=== PATIENT | male | born 1970 | race Two or more races ===

== ENCOUNTER 2017-03-14 00:08 | Emergency (ER) | payer SELFPAY ==
[~2017-03-14] VITALS: Ht 167.6 cm; Wt 63.6 kg
[2017-03-14 00:13] VITALS: BP 125/83
[2017-03-14] MEDS ORDERED: ALBU8.5H8 IH (00:28)
[2017-03-14] MEDS ORDERED: DOXY100C43 PO (00:28)
[2017-03-14] MEDS ORDERED: ipratropium/albuterol 3ml nebule NEB ONE (00:30)
== END 2017-03-14 01:24 | disposition home or self-care (01) ==
LOC: ER 00:13
DX: T69.022A Immersion foot, left foot, initial encounter (principal); T69.021A Immersion foot, right foot, initial encounter; J40 Bronchitis, not specified as acute or chronic; Z59.0 Homelessness
CPT/HCPCS: 94640; 94760; 99283

== ENCOUNTER 2017-03-16 17:01 | Emergency (ER) | payer OTHER ==
[~2017-03-16] VITALS: Ht 182781.3 cm; Wt 67.0 kg
[~2017-03-16 17:01] MED LIST: ALBU8.5H8 IH; DOXY100C43 PO
[2017-03-16 19:45] LABS: CLARITY,URINE CLEAR (Clear); GLUCOSE, URINE NEGATIVE (Neg); KETONES,URINE TRACE mg/dl (Neg); LEUKOCYTE ESTERASE ,URINE NEGATIVE (Neg); NITRITES, URINE NEGATIVE (Neg); OCCULT BLOOD,URINE NEGATIVE (Neg); PROTEIN,URINE TRACE mg/dl (Neg)
[2017-03-16 19:48] LABS: UA COLLECTION TYPE CLN CATCH MIDSTREAM
[2017-03-16 19:50] LABS: COLOR,URINE DARK YELLOW (Yellow)
[2017-03-16 19:55] LABS: WBC,URINE 0-4 /HPF (0-4)
[2017-03-16 19:56] LABS: BACTERIA,URINE NONE SEEN /HPF (Neg); MUCUS STRANDS MANY /LPF (Neg); RBC,URINE 0-2 /HPF (0-2); SQUAMOUS EPITHELIAL CELL,UR NONE SEEN /LPF (FEW)
[2017-03-16] MEDS ORDERED: fluconazole 100mg tablet PO ONE (20:00)
[2017-03-16 20:01] LABS: URINE AMPHETAMINE SCREEN NEGATIVE (Neg); URINE BARBITUATE SCREEN NEGATIVE (Neg); URINE BENZODIAZEPINES SCREEN NEGATIVE (Neg); URINE CANNABINOID SCREEN POSITIVE (Neg); URINE COCAINE SCREEN NEGATIVE (Neg); URINE METHADONE SCREEN NEGATIVE (Neg); URINE OPIATE SCREEN NEGATIVE (Neg); URINE PHENCYCLIDINE SCREEN NEGATIVE (Neg)
[2017-03-16 20:05] LABS: BASOPHILS % (AUTO) 0.3 % (0-1); EOSINOPHILS # (AUTO) 0.1 X10'3 (0-0.9); EOSINOPHILS % (AUTO) 1.6 % (0-6); HEMATOCRIT 47.6 % (42.0-52.0); LYMPHOCYTES # (AUTO) 1.9 X10'3 (1.1-4.8); LYMPHOCYTES % (AUTO) 31.2 % (21-51); MEAN CORPUSCULAR HEMOGLOBIN 30.8 PG (27.0-31.0); MEAN CORPUSCULAR HGB CONC 33.5 % (33.0-36.5); MEAN CORPUSCULAR VOLUME 91.8 FL (78-98); MEAN PLATELET VOLUME 7.5 FL (7.4-10.4); MONOCYTES # (AUTO) 0.6 X10'3 (0-0.9); MONOCYTES % (AUTO) 10.2 % (2-12); NEUTROPHILS # (AUTO) 3.4 X10'3 (1.8-7.7); NEUTROPHILS % (AUTO) 56.7 % (42-75); PLATELET COUNT 248 X10'3 (140-440); RED BLOOD COUNT 5.19 X10'6 (4.70-6.10); RED CELL DISTRIBUTION WIDTH 13.6 % (11.5-14.5)
[2017-03-16 20:33] LABS: ACETAMINOPHEN < 2.0 UG/ML (10-30); ALANINE AMINOTRANSFERASE 72 U/L (12-78); ALBUMIN 3.5 G/DL (3.4-5.0); ALBUMIN/GLOBULIN RATIO 0.8 (1.1-1.5); ALKALINE PHOSPHATASE 110 IU/L (46-116); ANION GAP 8 (8-16); ASPARTATE AMINO TRANSFERASE 48 U/L (10-37); BILIRUBIN,TOTAL 0.5 MG/DL (0.1-1.0); BLOOD UREA NITROGEN 19 MG/DL (7-18); BUN/CREATININE RATIO 22.1 (5.4-32.0); CALCIUM 8.8 MG/DL (8.5-10.1); CHLORIDE 102 MMOL/L (99-107); CREATININE 0.86 MG/DL (0.60-1.10); ETHANOL < 0.010 GM/DL (0.0-0.010); GLUCOSE 86 MG/DL (70-104); POTASSIUM 3.9 MMOL/L (3.5-5.1); SODIUM 138 MMOL/L (135-145); TOTAL CARBON DIOXIDE 27.6 MMOL/L (24-32); TOTAL PROTEIN 7.8 G/DL (6.4-8.2); eGFR > 90 ML/MIN
[2017-03-17] MEDS ORDERED: DOXY100C43 PO ×2 (00:59→03:18)
[2017-03-17] MEDS ORDERED: ALB0.5UD IH (00:59)
[2017-03-17] MEDS ORDERED: ALBU8HFA PO (03:18)
[2017-03-17] MEDS ORDERED: albuterol 2.5 MG/3 ML nebule NEB PRN (04:20)
[2017-03-17] MEDS ORDERED: mirtazapine 15mg tablet PO SCH (21:00)
[2017-03-17] MEDS: LORazepam 1 MG tablet PO PRN (23:13)
[2017-03-18] MEDS ORDERED: risperiDONE 0.5mg tablet PO ONE (08:00)
[2017-03-18] MEDS ORDERED: risperiDONE 2mg tablet PO ONE (08:00)
[2017-03-18] MEDS: LORazepam 1 MG tablet PO PRN (08:28)
[2017-03-18 13:24] VITALS: BP 124/80
== END 2017-03-18 13:39 ==
LOC: ER 17:01
DX: R45.851 Suicidal ideations (principal); M79.671 Pain in right foot; M79.672 Pain in left foot; F17.200 Nicotine dependence, unspecified, uncomplicated; F12.10 Cannabis abuse, uncomplicated; F15.10 Other stimulant abuse, uncomplicated; Z59.0 Homelessness
CPT/HCPCS: 36415; 80053; 80305; 80320; 80329; 81001; 84443; 85025; 99285

== ENCOUNTER 2017-03-30 23:46 | Emergency (ER) | payer MEDICAID, OTHER ==
[~2017-03-30] VITALS: Ht 182781.3 cm; Wt 65.9 kg
[~2017-03-30 23:46] MED LIST changes: -ALBU8.5H8 IH; +ALBU8HFA PO
[2017-03-31] MEDS ORDERED: BENZ1TAB7 PO (00:11)
[2017-03-31] MEDS ORDERED: LURA80TA3 PO (00:11)
[2017-03-31] MEDS ORDERED: QUET-1 (00:11)
[2017-03-31 01:56] LABS: URINE AMPHETAMINE SCREEN NEGATIVE (Neg); URINE BARBITUATE SCREEN NEGATIVE (Neg); URINE BENZODIAZEPINES SCREEN NEGATIVE (Neg); URINE CANNABINOID SCREEN POSITIVE (Neg); URINE COCAINE SCREEN NEGATIVE (Neg); URINE METHADONE SCREEN NEGATIVE (Neg); URINE OPIATE SCREEN NEGATIVE (Neg); URINE PHENCYCLIDINE SCREEN NEGATIVE (Neg)
[2017-03-31 02:01] LABS: ALANINE AMINOTRANSFERASE 94 U/L (12-78); ALBUMIN/GLOBULIN RATIO 0.8 (1.1-1.5); ALKALINE PHOSPHATASE 126 IU/L (46-116); ANION GAP 6 (8-16); ASPARTATE AMINO TRANSFERASE 58 U/L (10-37); BILIRUBIN,TOTAL 0.2 MG/DL (0.1-1.0); BLOOD UREA NITROGEN 13 MG/DL (7-18); BUN/CREATININE RATIO 16.3 (5.4-32.0); CALCIUM 8.5 MG/DL (8.5-10.1); CHLORIDE 103 MMOL/L (99-107); GLUCOSE 103 MG/DL (70-104); POTASSIUM 4.1 MMOL/L (3.5-5.1); SODIUM 139 MMOL/L (135-145); TOTAL CARBON DIOXIDE 30.5 MMOL/L (24-32); eGFR > 90 ML/MIN
[2017-03-31 02:07] LABS: BASOPHILS % (AUTO) 0.6 % (0-1); EOSINOPHILS # (AUTO) 0.1 X10'3 (0-0.9); HEMATOCRIT 44.2 % (42.0-52.0); HEMOGLOBIN 14.9 g/dl (14.0-17.9); LYMPHOCYTES # (AUTO) 1.5 X10'3 (1.1-4.8); LYMPHOCYTES % (AUTO) 38.2 % (21-51); MEAN CORPUSCULAR HEMOGLOBIN 30.2 PG (27.0-31.0); MEAN CORPUSCULAR HGB CONC 33.6 % (33.0-36.5); MEAN CORPUSCULAR VOLUME 89.8 FL (78-98); MEAN PLATELET VOLUME 7.9 FL (7.4-10.4); MONOCYTES # (AUTO) 0.6 X10'3 (0-0.9); MONOCYTES % (AUTO) 15.5 % (2-12); NEUTROPHILS # (AUTO) 1.7 X10'3 (1.8-7.7); NEUTROPHILS % (AUTO) 42.7 % (42-75); PLATELET COUNT 156 X10'3 (140-440); RED BLOOD COUNT 4.93 X10'6 (4.70-6.10); RED CELL DISTRIBUTION WIDTH 13.4 % (11.5-14.5); WHITE BLOOD COUNT 3.9 X10'3 (4.5-11.0)
[2017-03-31 02:08] LABS: ETHANOL < 0.010 GM/DL (0.0-0.010)
[2017-03-31] MEDS ORDERED: non-formulary drug (albuterol inhaler (Pro-Air Inhaler) 0 PUFFS) PO PRN (04:20)
[2017-03-31] MEDS ORDERED: albuterol 2.5 MG/3 ML nebule NEB PRN (04:25)
[2017-03-31] MEDS ORDERED: ziprasidone 20mg capsule PO SCH ×2 (08:00→12:35)
[2017-03-31] MEDS ORDERED: ziprasidone 20mg capsule PO PRN (12:40)
[2017-03-31] MEDS: benztropine 1mg tablet PO SCH ×2 (21:00→22:52)
[2017-03-31] MEDS ORDERED: quetiapine 100mg tablet PO SCH (21:00)
[2017-03-31] MEDS ORDERED: lurasidone 20mg tablet PO SCH (21:00)
[2017-04-01] MEDS ORDERED: BENZ1TAB7 PO (09:33)
[2017-04-01] MEDS ORDERED: QUET-1 PO (09:33)
[2017-04-01] MEDS ORDERED: LURA80TA3 PO (09:33)
[2017-04-01 09:47] VITALS: BP 122/84
== END 2017-04-01 10:05 | disposition home or self-care (01) ==
LOC: ER 23:47
DX: F32.9 Major depressive disorder, single episode, unspecified (principal); J45.909 Unspecified asthma, uncomplicated; F41.9 Anxiety disorder, unspecified; F12.10 Cannabis abuse, uncomplicated; F15.10 Other stimulant abuse, uncomplicated; Z56.0 Unemployment, unspecified; Z60.2 Problems related to living alone; Z59.0 Homelessness
CPT/HCPCS: 36415; 80053; 80305; 80320; 84443; 85025; 99284